=== PATIENT | female | born 1990 | race African-American/Black ===

== ENCOUNTER 2022-03-22 20:32 | Emergency (ER) | payer MEDICAID ==
[~2022-03-22] VITALS: Ht 170.2 cm; Wt 68.0 kg
[2022-03-22 20:45] VITALS: BP 102/67
--- NOTE | 2022-03-22 20:48 | NUR ---
TO LOBBY A/W BED AMBULATORY
[2022-03-22] MEDS ORDERED: ONDANSETRON 4 MG ODT PO ONE (22:00)
[2022-03-22 22:20] LABS: APPEARANCE,URINE CLEAR (CLEAR); BILIRUBIN,URINE 1+ (NEGATIVE); BLOOD, URINE NEGATIVE (NEGATIVE); COLOR,URINE YELLOW (YELLOW); LEUKOCYTE ESTERASE ,URINE NEGATIVE (NEGATIVE); NITRITE, URINE NEGATIVE (NEGATIVE); UGLUCOSE NEGATIVE (NEGATIVE)
--- NOTE | 2022-03-22 22:24 | NUR ---
PHLEB DRAWING LABS
--- NOTE | 2022-03-22 22:30 | NUR ---
SEEN AND EXAMINED BY GUIDO
[2022-03-22 22:32] LABS: BASOPHILS % (AUTO) 0.3 % (0.0-2.0); EOSINOPHILS # (AUTO) 0.1 K/uL (0-0.4); HEMATOCRIT 34.4 % (36-48); HEMOGLOBIN 11.6 g/dL (12.0-16.0); LYMPHOCYTES # (AUTO) 2.5 K/uL (2.5-16.5); LYMPHOCYTES % (AUTO) 42.3 % (20.5-51.1); MEAN CORPUSCULAR HEMOGLOBIN 31 pg (27-31); MEAN CORPUSCULAR HGB CONC 34 g/dL (33-37); MEAN CORPUSCULAR VOLUME 93.1 fL (80-94); MONOCYTES # (AUTO) 0.5 K/uL (0.8-1.0); MONOCYTES % (AUTO) 8.6 % (1.7-9.3); NEUTROPHILS # (AUTO) 2.9 K/uL (1.8-7.7); NEUTROPHILS % (AUTO) 47.8 % (42.2-75.2); PLATELET COUNT (AUTO) 276 K/uL (140-450); RED BLOOD CELL COUNT(AUTO) 3.69 MIL/uL (4.20-5.40); RED CELL DISTRIBUTION WIDTH 12.9 % (11.6-13.7)
[2022-03-22 22:53] LABS: ALBUMIN 4.1 g/dL (3.4-5.0); CARBON DIOXIDE 30.1 mmol/L (21-32); POTASSIUM 4.1 mmol/L (3.5-5.1); TOTAL BILIRUBIN 0.4 mg/dL (0.0-1.0)
[2022-03-23] MEDS ORDERED: POLY17PD72 PO (00:07)
[2022-03-23] MEDS ORDERED: ONDA-188 SL (00:07)
[2022-03-23 00:10] VITALS: BP 115/78
--- NOTE | 2022-03-23 00:10 | NUR ---
Patient discharged with v/s stable. Written and verbal after care instructions given and explained. Patient alert, oriented and verbalized understanding of instructions. Ambulatory with steady gait. All questions addressed prior to discharge. ID band removed. Patient advised to follow up with PMD. Rx of ZOFRAN, GLYCOL given. Patient educated on indication of medication including possible reaction and side effects. Opportunity to ask questions provided and answered.
== END 2022-03-23 00:10 | disposition home or self-care (01) ==
LOC: MED 20:32
DX: K59.00 Constipation, unspecified (principal)
CPT/HCPCS: 36415; 74018; 80053; 81003; 81025; 83690; 85025; 99284; Q0162

== ENCOUNTER 2022-03-30 23:00 | Emergency (ER) | payer MEDICAID ==
[~2022-03-30] VITALS: Ht 170.2 cm; Wt 68.0 kg
[~2022-03-30 23:00] MED LIST: ONDA-188 SL; POLY17PD72 PO
--- NOTE | 2022-03-30 23:00 | NUR ---
PT CAME IN FOR ABCESS IN THE [facility]. SHE SAID THAT WHEN SHE WORKED YESTERDAY UND[employer] KIND AGGRAVATE HER ABCESS. PT IS ALERT AD ORIENTED X 4. AMBULATORY AND ROOM AIR
[2022-03-30 23:15] VITALS: BP 110/80
--- NOTE | 2022-03-30 23:15 | NUR ---
to bed ambulatory
--- NOTE | 2022-03-30 23:30 | NUR ---
seen and examined by GUIDO
[2022-03-30] MEDS ORDERED: LIDOCAINE 1% 500 MG/ 50 ML VIAL INJ ONE (23:35)
[2022-03-30] MEDS ORDERED: LIDOCAINE MPF 1% 10 ML ONE (23:37)
[2022-03-30 23:40] VITALS: BP 110/80
--- NOTE | 2022-03-30 23:47 | NUR ---
Dr. Borjas at bedside for procedure
[2022-03-30] MEDS ORDERED: LIDOCAINE MPF 1% 5 ML ONE (23:57)
[2022-03-31] MEDS ORDERED: LIDOCAINE MPF 1% 10 MG/ML VIAL INJ ONE
[2022-03-31] MEDS ORDERED: NAPR-54 PO (00:19)
[2022-03-31] MEDS ORDERED: CEPH-588 PO (00:19)
--- NOTE | 2022-03-31 00:28 | NUR ---
Patient discharged with v/s stable. Written and verbal after care instructions given and explained. Patient alert, oriented and verbalized understanding of instructions. Ambulatory with steady gait. All questions addressed prior to discharge. ID band removed. Patient advised to follow up with PMD. Rx of NAPROXEN AND KEFLEX given. Patient educated on indication of medication including possible reaction and side effects. Opportunity to ask questions provided and answered.
== END 2022-03-31 00:28 | disposition home or self-care (01) ==
LOC: MED 23:00
DX: K61.1 Rectal abscess (principal)
CPT/HCPCS: 10060; 99283; J2001

== ENCOUNTER 2022-04-01 22:46 | Emergency (ER) | payer MEDICAID ==
[~2022-04-01] VITALS: Ht 170.2 cm; Wt 68.0 kg
[~2022-04-01 22:46] MED LIST changes: +CEPH-588 PO; +NAPR-54 PO
[2022-04-01 23:02] VITALS: BP 98/68
--- NOTE | 2022-04-01 23:20 | NUR ---
PT TO 1
--- NOTE | 2022-04-01 23:30 | NUR ---
Pt BIB family to ED, she's 31-year-old female, previously healthy, presents to the ED for evaluation of a potential perirectal abscess. No other concerns verbalized.
--- NOTE | 2022-04-02 00:10 | NUR ---
Female [employer] Brusher accompanied female patient for REMOVAL OF PACKING TO RIGHT BUTTOCK.
[2022-04-02 00:20] VITALS: BP 124/68
--- NOTE | 2022-04-02 00:20 | NUR ---
Patient discharged with v/s stable. Written and verbal after care instructions given and explained. Patient verbalized understanding. Ambulatory with steady gait. All questions addressed prior to discharge. Advised to follow up with PMD.
== END 2022-04-02 00:20 | disposition home or self-care (01) ==
LOC: MED 22:46
DX: L02.31 Cutaneous abscess of buttock (principal); F12.90 Cannabis use, unspecified, uncomplicated; Z79.899 Other long term (current) drug therapy
CPT/HCPCS: 99281

== ENCOUNTER 2022-05-29 19:15 | Emergency (ER) | payer MEDICAID, OTHER ==
[~2022-05-29] VITALS: Ht 170.2 cm; Wt 72.1 kg
[2022-05-29 19:27] VITALS: BP 117/80
--- NOTE | 2022-05-29 19:32 | NUR ---
PT TO BED AMBULATORY
[2022-05-29] MEDS ORDERED: NACL 0.9% 1,000 ML IV ONE ×2 (19:40→20:35)
[2022-05-29] MEDS ORDERED: diphenhydrAMINE 50 MG/ML VIAL IVP ONE (19:40)
[2022-05-29] MEDS ORDERED: HALOPERIDOL IM 5 MG/ML VIAL IVP ONE (19:40)
--- NOTE | 2022-05-29 19:42 | NUR ---
DR BLANKENSHIP AT BEDSIDE
[2022-05-29 19:57] VITALS: BP 136/87
[2022-05-29 19:58] LABS: BASOPHILS % (AUTO) 0.3 % (0.0-2.0); EOSINOPHILS % (AUTO) 0.2 % (0.0-4.0); HEMATOCRIT 34.5 % (36-48); HEMOGLOBIN 11.6 g/dL (12.0-16.0); LYMPHOCYTES # (AUTO) 2.9 K/uL (2.5-16.5); LYMPHOCYTES % (AUTO) 34.2 % (20.5-51.1); MEAN CORPUSCULAR HEMOGLOBIN 31 pg (27-31); MEAN CORPUSCULAR HGB CONC 34 g/dL (33-37); MEAN CORPUSCULAR VOLUME 90.4 fL (80-94); MONOCYTES # (AUTO) 1.3 K/uL (0.8-1.0); MONOCYTES % (AUTO) 15.3 % (1.7-9.3); NEUTROPHILS # (AUTO) 4.3 K/uL (1.8-7.7); PLATELET COUNT (AUTO) 300 K/uL (140-450); RED BLOOD CELL COUNT(AUTO) 3.81 MIL/uL (4.20-5.40); RED CELL DISTRIBUTION WIDTH 13.8 % (11.6-13.7); WHITE BLOOD COUNT (AUTO) 8.6 K/uL (4.8-10.8)
--- NOTE | 2022-05-29 20:02 | NUR ---
XRAY AT BEDSIDE
--- NOTE | 2022-05-29 20:02 | NUR ---
31YR OLD FEMALE BIB SELF C/O ABD PAIN VOMITING X3DAYS. PT IS A&OX4 STATES SX STARTED WED. VOMITING -DIARRHEA OR FEVER DENIES SOB OR CP . PAIN IS 10/10 SHARP MID GASTRIC ABD. PT IS ON BEDSIDE MONITOR. NKDA NO MED HX
[2022-05-29 20:17] LABS: ANION GAP 18.1 (8-16); CARBON DIOXIDE 24.1 mmol/L (21-32); CREATININE 1.7 mg/dL (0.6-1.3); POTASSIUM 3.2 mmol/L (3.5-5.1); TOTAL BILIRUBIN 0.6 mg/dL (0.0-1.0)
--- NOTE | 2022-05-29 20:29 | NUR ---
PT IS RESTING IN BED HOB ELEVATED. 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
--- NOTE | 2022-05-29 21:05 | NUR ---
URINE COLLECTED AND SENT TO LAB
[2022-05-29 21:18] LABS: BILIRUBIN,URINE NEGATIVE (NEGATIVE); BLOOD, URINE NEGATIVE (NEGATIVE); LEUKOCYTE ESTERASE ,URINE TRACE (NEGATIVE); NITRITE, URINE NEGATIVE (NEGATIVE); PH,URINE 5.5 (5.0-9.0); UGLUCOSE NEGATIVE (NEGATIVE)
[2022-05-29 21:20] LABS: APPEARANCE,URINE HAZY (CLEAR); COLOR,URINE AMBER (YELLOW)
[2022-05-29] MEDS ORDERED: ONDANSETRON 4 MG/2 ML VIAL ONE (21:29)
[2022-05-29] MEDS ORDERED: ONDANSETRON 4 MG/2 ML VIAL IVP ONE (21:30)
[2022-05-29] MEDS ORDERED: CAPSAICIN 0.025% CRE 60 GM TUBE TP ONE (21:30)
[2022-05-29 21:38] LABS: RBC,URINE NONE SEEN /HPF (0-5)
[2022-05-29] MEDS ORDERED: CEPH-588 PO (22:28)
[2022-05-29] MEDS ORDERED: ONDA-188 PO (22:28)
--- NOTE | 2022-05-29 22:40 | NUR ---
Patient discharged with v/s stable. Written and verbal after care instructions given and explained. Patient verbalized understanding. Ambulatory with by caregiver. All questions addressed prior to discharge. Advised to follow up with PMD.
== END 2022-05-29 22:40 | disposition home or self-care (01) ==
LOC: MED 19:15
DX: N39.0 Urinary tract infection, site not specified (principal); K59.00 Constipation, unspecified; N17.9 Acute kidney failure, unspecified; Z79.899 Other long term (current) drug therapy
CPT/HCPCS: 36415; 74018; 80053; 81001; 81025; 83690; 85025; 87086; 96361; 96374; 96375; 99284; J1200; J1630; J2405; J7030

== ENCOUNTER 2022-06-03 01:07 | Emergency (ER) | payer OTHER ==
[~2022-06-03] VITALS: Ht 170.2 cm; Wt 66.3 kg
[~2022-06-03 01:07] MED LIST changes: +ONDA-188 PO
[2022-06-03 01:30] VITALS: BP 112/58
--- NOTE | 2022-06-03 01:30 | NUR ---
TO BED AMBULATORY
--- NOTE | 2022-06-03 01:58 | NUR ---
Blood for labwork drawn from [facility]. Patient tolerated well. Blood sent to lab.
[2022-06-03 02:01] VITALS: BP 112/58
--- NOTE | 2022-06-03 02:04 | NUR ---
VOMITING FOR A WEEK, ABD PAIN. PT IS ALERT AND ORIENTED X4.
[2022-06-03] MEDS ORDERED: HALOPERIDOL IM 5 MG/ML VIAL IVP ONE (02:20)
[2022-06-03] MEDS ORDERED: NACL 0.9% 1,000 ML IV ONE (02:20)
[2022-06-03 02:31] LABS: BASOPHILS # (AUTO) 0.1 K/uL (0.00-0.22); BASOPHILS % (AUTO) 0.6 % (0.0-2.0); HEMATOCRIT 37.6 % (36-48); HEMOGLOBIN 12.6 g/dL (12.0-16.0); LYMPHOCYTES # (AUTO) 2.5 K/uL (2.5-16.5); LYMPHOCYTES % (AUTO) 24.4 % (20.5-51.1); MEAN CORPUSCULAR HEMOGLOBIN 31 pg (27-31); MEAN CORPUSCULAR HGB CONC 34 g/dL (33-37); MONOCYTES # (AUTO) 1.1 K/uL (0.8-1.0); MONOCYTES % (AUTO) 10.4 % (1.7-9.3); NEUTROPHILS # (AUTO) 6.7 K/uL (1.8-7.7); NEUTROPHILS % (AUTO) 64.6 % (42.2-75.2); PLATELET COUNT (AUTO) 324 K/uL (140-450); RED BLOOD CELL COUNT(AUTO) 4.13 MIL/uL (4.20-5.40); RED CELL DISTRIBUTION WIDTH 13.7 % (11.6-13.7); WHITE BLOOD COUNT (AUTO) 10.4 K/uL (4.8-10.8)
[2022-06-03 02:38] LABS: ANION GAP 20.6 (8-16); CREATININE 3.7 mg/dL (0.6-1.3); POTASSIUM 3.6 mmol/L (3.5-5.1); TOTAL BILIRUBIN 0.6 mg/dL (0.0-1.0)
[2022-06-03] MEDS ORDERED: METOCLOPRAMIDE 10 MG/2 ML INJ VIAL IVP ONE (04:20)
[2022-06-03] MEDS ORDERED: METOCLOPRAMIDE 10 MG/2 ML INJ VIAL ONE (04:24)
--- NOTE | 2022-06-03 05:50 | NUR ---
adm Patient will be admitted to care of acute pancratitis. Admited to telemetry. Will go to room. Belongings list completed. Report to .
[2022-06-03] MEDS ORDERED: ONDANSETRON 4 MG/2 ML VIAL IVP PRN (06:00)
[2022-06-03] MEDS ORDERED: MORPHINE SULFATE 4 MG/ML SYR IVP PRN (06:00)
[2022-06-03] MEDS ORDERED: NACL 0.9% 1,000 ML IV SCH (06:00)
[2022-06-03] MEDS ORDERED: HYDROcodone/APAP 5/325 MG 1 TAB TAB PO PRN (06:00)
[2022-06-03] MEDS ORDERED: MAGNESIUM OXIDE 400 MG TAB PO PRN (06:00)
[2022-06-03] MEDS ORDERED: POTASSIUM CHLORIDE 10 MEQ TABER PO PRN (06:00)
[2022-06-03] MEDS ORDERED: ACETAMINOPHEN 325 MG TAB PO PRN (06:00)
[2022-06-03] MEDS ORDERED: METOCLOPRAMIDE 10 MG/2 ML INJ VIAL IVP PRN (06:05)
--- NOTE | 2022-06-03 06:35 | NUR ---
called exchange s/w Bobbi to paged transmission supervisor physcian to notify that patient left AMA.
--- NOTE | 2022-06-03 06:35 | NUR ---
Patient does not wish to proceed with medical care recommended by MD Cuevas. Patient given information related to possible complications, up to and including , which could occur as a result of leaving hospital at this time. Patient verbalizes understanding of risks involved leaving against medical advice. Patient has signed AMA form.
[2022-06-03] MEDS ORDERED: DOCUSATE SODIUM 100 MG GELCAP PO SCH (09:00)
== END 2022-06-03 06:02 | disposition admitted as inpatient to this hospital (09) ==
LOC: MED 01:07 → MMU 06:02 → UNDOADMOB 06:02 → UNDODISOB 06:35
DX: N17.9 Acute kidney failure, unspecified (principal); R11.10 Vomiting, unspecified; Z20.822 Contact with and (suspected) exposure to COVID-19; F12.90 Cannabis use, unspecified, uncomplicated; Z79.899 Other long term (current) drug therapy; Z79.2 Long term (current) use of antibiotics; Z79.1 Long term (current) use of non-steroidal anti-inflammatories (NSAID)
CPT/HCPCS: 36415; 80053; 83690; 84703; 85025; 87426; 96361; 96374; 96375; 99284; J1630; J2765; G0378

== ENCOUNTER 2023-02-04 01:45 | Inpatient (IN) | payer OTHER ==
[~2023-02-04] VITALS: Ht 182.9 cm; Wt 77.6 kg
[2023-02-04 01:54] VITALS: BP 104/79; PULSE 92; RESP 16; TEMP 97; O2SAT 100
[2023-02-04] MEDS ORDERED: diphenhydrAMINE 50 MG/ML VIAL IVP ONE (02:25)
[2023-02-04] MEDS ORDERED: HALOPERIDOL IM 5 MG/ML VIAL IVP ONE (02:25)
[2023-02-04] MEDS ORDERED: NACL 0.9% 1,000 ML IV ONE (02:25)
[2023-02-04 02:36] LABS: BASOPHILS # (AUTO) 0.1 K/uL (0.00-0.22); BASOPHILS % (AUTO) 0.2 % (0.0-2.0); HEMATOCRIT 38.6 % (36-48); HEMOGLOBIN 13.1 g/dL (12.0-16.0); LYMPHOCYTES # (AUTO) 1.8 K/uL (2.5-16.5); LYMPHOCYTES % (AUTO) 6.9 % (20.5-51.1); MEAN CORPUSCULAR HEMOGLOBIN 31 pg (27-31); MEAN CORPUSCULAR HGB CONC 34 g/dL (33-37); MEAN CORPUSCULAR VOLUME 90.1 fL (80-94); MONOCYTES # (AUTO) 2.6 K/uL (0.8-1.0); NEUTROPHILS # (AUTO) 21.9 K/uL (1.8-7.7); NEUTROPHILS % (AUTO) 82.9 % (42.2-75.2); PLATELET COUNT (AUTO) 286 K/uL (140-450); RED BLOOD CELL COUNT(AUTO) 4.29 MIL/uL (4.20-5.40); RED CELL DISTRIBUTION WIDTH 14.3 % (11.6-13.7)
[2023-02-04 02:37] LABS: WHITE BLOOD COUNT (AUTO) 26.4 K/uL (4.8-10.8)
[2023-02-04 02:49] LABS: ANION GAP 27.6 (8-16); CALCIUM 11.4 mg/dL (8.5-10.1); CARBON DIOXIDE 19.9 mmol/L (21-32); POTASSIUM 4.5 mmol/L (3.5-5.1)
[2023-02-04 02:50] LABS: CREATININE 6.9 mg/dL (0.6-1.3)
[2023-02-04] MEDS ORDERED: diphenhydrAMINE 50 MG/ML VIAL ONE (03:38)
[2023-02-04] MEDS ORDERED: HALOPERIDOL IM 5 MG/ML VIAL ONE (03:57)
[2023-02-04] MEDS ORDERED: ONDANSETRON 4 MG/2 ML VIAL IVP ONE (04:25)
[2023-02-04] MEDS ORDERED: LORazepam 2 MG/ML VIAL IVP ONE (04:25)
[2023-02-04 04:33] LABS: LACTIC ACID 2.3 mmol/L (0.4-2.0)
[2023-02-04] MEDS ORDERED: MAGNESIUM OXIDE 400 MG TAB PO PRN (05:50)
[2023-02-04] MEDS ORDERED: HYDROcodone/APAP 5/325 MG 1 TAB TAB PO PRN (05:50)
[2023-02-04] MEDS ORDERED: MORPHINE SULFATE 4 MG/ML SYR IVP PRN (05:50)
[2023-02-04] MEDS ORDERED: POTASSIUM CHLORIDE 10 MEQ TABER PO PRN (05:50)
[2023-02-04] MEDS ORDERED: ACETAMINOPHEN 325 MG TAB PO PRN (05:50)
[2023-02-04] MEDS ORDERED: cefTRIAXone 1,000 MG VIAL ONE (07:09)
[2023-02-04] MEDS: NACL 0.9% 1,000 ML IV SCH ×2 (07:20→21:02)
[2023-02-04] MEDS: DOCUSATE SODIUM 100 MG GELCAP PO SCH (09:56)
[2023-02-04 10:38] LABS: AMPHETAMINE, URINE NEGATIVE ng/ml (NEG <=1000); BARBITURATE, URINE NEGATIVE ng/ml (NEG <=200); BENZODIAZEPINE, URINE NEGATIVE ng/mL (NEG <=200); CANNABINOID, URINE POSITIVE ng/mL (NEG <=50); COCAINE, URINE NEGATIVE ng/mL (NEG <=300)
[2023-02-04 10:39] LABS: PHENCYCLIDINE SCREEN,URINE NEGATIVE ng/mL (NEG <=25)
[2023-02-04 10:40] LABS: OPIATE, URINE POSITIVE ng/mL (NEG <=2000)
[2023-02-04] MEDS: ONDANSETRON 4 MG/2 ML VIAL IVP PRN ×3 (11:07→21:19)
[2023-02-04 15:45] LABS: ANION GAP 19.7 (8-16); CALCIUM 9.5 mg/dL (8.5-10.1); CARBON DIOXIDE 23.7 mmol/L (21-32); POTASSIUM 4.4 mmol/L (3.5-5.1)
[2023-02-04 15:50] LABS: CREATININE 6.9 mg/dL (0.6-1.3)
[2023-02-04 20:17] VITALS: BP 112/84; PULSE 68; PULSE 86; RESP 15; RESP 17; TEMP 98.3; O2SAT 100
[2023-02-04 22:22] LABS: ANION GAP 19.5 (8-16); CALCIUM 9.4 mg/dL (8.5-10.1); CARBON DIOXIDE 23.2 mmol/L (21-32); POTASSIUM 4.7 mmol/L (3.5-5.1)
[2023-02-04 22:32] LABS: CREATININE 6.1 mg/dL (0.6-1.3)
[2023-02-05] VITALS (7 sets, daily range): BP systolic 101–125; BP diastolic 59–70; PULSE 65–109; RESP 17–18; TEMP 95.5–98.7; O2SAT 99–100
[2023-02-05] MEDS: ONDANSETRON 4 MG/2 ML VIAL IVP PRN ×3 (02:13→20:31)
[2023-02-05] MEDS ORDERED: cefTRIAXone 1,000 MG VIAL ONE (05:36)
[2023-02-05] MEDS: NACL 0.9% 1,000 ML IV SCH ×2 (05:46→13:00)
[2023-02-05 07:09] LABS: CALCIUM 8.9 mg/dL (8.5-10.1); CARBON DIOXIDE 22.6 mmol/L (21-32); POTASSIUM 3.6 mmol/L (3.5-5.1)
[2023-02-05 07:10] LABS: BASOPHILS % (AUTO) 0.1 % (0.0-2.0); EOSINOPHILS % (AUTO) 0.1 % (0.0-4.0); HEMATOCRIT 30.5 % (36-48); HEMOGLOBIN 10.2 g/dL (12.0-16.0); LYMPHOCYTES # (AUTO) 1.9 K/uL (2.5-16.5); LYMPHOCYTES % (AUTO) 17.8 % (20.5-51.1); MEAN CORPUSCULAR HEMOGLOBIN 30 pg (27-31); MEAN CORPUSCULAR HGB CONC 33 g/dL (33-37); MEAN CORPUSCULAR VOLUME 91.3 fL (80-94); MONOCYTES # (AUTO) 1.3 K/uL (0.8-1.0); MONOCYTES % (AUTO) 12.3 % (1.7-9.3); NEUTROPHILS # (AUTO) 7.4 K/uL (1.8-7.7); NEUTROPHILS % (AUTO) 69.7 % (42.2-75.2); PLATELET COUNT (AUTO) 223 K/uL (140-450); RED BLOOD CELL COUNT(AUTO) 3.34 MIL/uL (4.20-5.40); RED CELL DISTRIBUTION WIDTH 14.4 % (11.6-13.7); WHITE BLOOD COUNT (AUTO) 10.6 K/uL (4.8-10.8)
[2023-02-05 07:18] LABS: CREATININE 4.7 mg/dL (0.6-1.3)
[2023-02-05 07:59] LABS: BILIRUBIN,URINE NEGATIVE (NEGATIVE); BLOOD, URINE NEGATIVE (NEGATIVE); COLOR,URINE YELLOW (YELLOW); LEUKOCYTE ESTERASE ,URINE 1+ (NEGATIVE); NITRITE, URINE NEGATIVE (NEGATIVE); PH,URINE 5.5 (5.0-9.0); PROTEIN,URINE 1+ (NEGATIVE); UGLUCOSE NEGATIVE (NEGATIVE); UROBILINOGEN,URINE 0.2 EU/dL (0.2 - 1)
[2023-02-05 08:00] LABS: APPEARANCE,URINE CLOUDY (CLEAR)
[2023-02-05 08:10] LABS: BACTERIA,URINE 10-30 (MOD) /HPF (None Seen); SQUAMOUS EPITHELIAL CELL,UR 4-10 (MOD) /LPF (0-3 (FEW))
[2023-02-05] MEDS: DOCUSATE SODIUM 100 MG GELCAP PO SCH (08:59)
[2023-02-06] VITALS: BP 105/70; PULSE 67; RESP 18; TEMP 98; O2SAT 100
[2023-02-06] MEDS: ONDANSETRON 4 MG/2 ML VIAL IVP PRN (02:29)
[2023-02-06] MEDS: NACL 0.9% 1,000 ML IV SCH (02:30)
[2023-02-06 04:00] VITALS: BP 113/68; PULSE 67; RESP 18; TEMP 97.8; O2SAT 100
[2023-02-06 07:14] LABS: BASOPHILS % (AUTO) 0.4 % (0.0-2.0); EOSINOPHILS % (AUTO) 0.4 % (0.0-4.0); HEMATOCRIT 27.5 % (36-48); HEMOGLOBIN 9.2 g/dL (12.0-16.0); LYMPHOCYTES # (AUTO) 1.9 K/uL (2.5-16.5); LYMPHOCYTES % (AUTO) 34.2 % (20.5-51.1); MEAN CORPUSCULAR HEMOGLOBIN 31 pg (27-31); MEAN CORPUSCULAR HGB CONC 34 g/dL (33-37); MEAN CORPUSCULAR VOLUME 91.1 fL (80-94); MONOCYTES # (AUTO) 0.8 K/uL (0.8-1.0); MONOCYTES % (AUTO) 14.4 % (1.7-9.3); NEUTROPHILS # (AUTO) 2.8 K/uL (1.8-7.7); NEUTROPHILS % (AUTO) 50.6 % (42.2-75.2); PLATELET COUNT (AUTO) 214 K/uL (140-450); RED BLOOD CELL COUNT(AUTO) 3.02 MIL/uL (4.20-5.40); WHITE BLOOD COUNT (AUTO) 5.5 K/uL (4.8-10.8)
[2023-02-06 07:26] LABS: ANION GAP 12.8 (8-16); CALCIUM 8.6 mg/dL (8.5-10.1); CARBON DIOXIDE 26.6 mmol/L (21-32); CREATININE 2.2 mg/dL (0.6-1.3); POTASSIUM 3.4 mmol/L (3.5-5.1)
[2023-02-06] MEDS: DOCUSATE SODIUM 100 MG GELCAP PO SCH (08:06)
[2023-02-06 08:56] VITALS: BP 104/62; PULSE 55; PULSE 62; RESP 18; TEMP 97; O2SAT 100
[2023-02-06 10:13] VITALS: BP 104/62; PULSE 62; RESP 18; TEMP 97
[2023-02-06] MEDS ORDERED: ONDA-188 SL (10:42)
== END 2023-02-06 11:10 | disposition home or self-care (01) | DRG 241 ==
LOC: MED 01:45 → MTU 05:53
PROVIDERS: ADMIT Student in an Organized Health Care Education/Training Program; ATTEND Student in an Organized Health Care Education/Training Program
DX: K29.70 Gastritis, unspecified, without bleeding (principal); N17.0 Acute kidney failure with tubular necrosis; E86.1 Hypovolemia; R65.10 Systemic inflammatory response syndrome (SIRS) of non-infectious origin without acute organ dysfunction; E86.9 Volume depletion, unspecified; F32.A Depression, unspecified; M79.7 Fibromyalgia; F12.90 Cannabis use, unspecified, uncomplicated; R11.15 Cyclical vomiting syndrome unrelated to migraine
CPT/HCPCS: 36415; 71045; 76770; 80048; 80305; 81001; 81025; 82570; 83605; 84300; 85025; 87040; 87081; 87086; 96361; 96372; 96374; 96375; 99285; J0696; J1200; J1630; J1644; J2060; J2405; J7060; Q0092

== ENCOUNTER 2023-06-08 09:35 | Emergency (ER) | payer MEDICAID, OTHER ==
[~2023-06-08] VITALS: Ht 170.2 cm; Wt 79.4 kg
[~2023-06-08 09:35] MED LIST changes: -CEPH-588 PO; -NAPR-54 PO; -ONDA-188 PO; -POLY17PD72 PO
[2023-06-08 09:40] VITALS: BP 110/70; PULSE 61; RESP 18; TEMP 97.1; O2SAT 100
[2023-06-08 10:47] VITALS: BP 112/82; PULSE 78; RESP 16; TEMP 98; O2SAT 100
== END 2023-06-08 10:47 | disposition home or self-care (01) ==
LOC: MED 09:35
DX: S83.91XA Sprain of unspecified site of right knee, initial encounter (principal); X58.XXXA Exposure to other specified factors, initial encounter; Y93.89 Activity, other specified; Y92.89 Other specified places as the place of occurrence of the external cause; Y99.8 Other external cause status
CPT/HCPCS: 73562; 81025; 99283

== ENCOUNTER 2023-07-16 21:54 | Emergency (ER) | payer MEDICAID ==
[~2023-07-16] VITALS: Ht 170.2 cm; Wt 81.6 kg
[2023-07-16 21:55] VITALS: BP 114/74; PULSE 92; RESP 17; TEMP 97.8; O2SAT 100
[2023-07-16] MEDS: IBUPROFEN 600 MG TAB PO ONE (23:26)
[2023-07-16 23:52] VITALS: O2SAT 98
[2023-07-16] MEDS: LIDOCAINE MPF 1% 10 MG/ML VIAL INJ ONE (23:59)
[2023-07-17] MEDS ORDERED: CLIN300C52 PO (00:12)
[2023-07-17] MEDS ORDERED: IBUP-1842 PO (00:12)
== END 2023-07-17 00:20 | disposition home or self-care (01) ==
LOC: MED 21:54
DX: L02.412 Cutaneous abscess of left axilla (principal); Z79.899 Other long term (current) drug therapy
CPT/HCPCS: 10060; 99283; J2001

== ENCOUNTER 2023-07-24 20:45 | Emergency (ER) | payer MEDICAID ==
[~2023-07-24] VITALS: Ht 170.2 cm; Wt 79.4 kg
[~2023-07-24 20:45] MED LIST changes: +CLIN300C52 PO; +IBUP-1842 PO
[2023-07-24 21:16] VITALS: BP 120/58; PULSE 127; RESP 20; TEMP 96.7; O2SAT 96
[2023-07-24 21:29] VITALS: BP 120/58; PULSE 127; RESP 20; TEMP 96.7
[2023-07-24 21:34] VITALS: O2SAT 96
[2023-07-24] MEDS: HALOPERIDOL IM 5 MG/ML VIAL IVP ONE (23:19)
[2023-07-24] MEDS: diphenhydrAMINE 50 MG/ML VIAL IVP ONE (23:20)
[2023-07-24] MEDS: NACL 0.9% 1,000 ML IV ONE (23:20)
== END 2023-07-25 01:15 | disposition home or self-care (01) ==
LOC: MED 20:45
DX: R11.2 Nausea with vomiting, unspecified (principal); F12.90 Cannabis use, unspecified, uncomplicated; Z79.899 Other long term (current) drug therapy
CPT/HCPCS: 81002; 81025; 96361; 96374; 96375; 99284; J1200; J1630; J7030

== ENCOUNTER 2023-07-27 02:20 | Emergency (ER) | payer MEDICAID ==
[~2023-07-27] VITALS: Ht 170.2 cm; Wt 75.3 kg
[2023-07-27 02:34] VITALS: BP 119/79; PULSE 145; RESP 26; TEMP 97.4; O2SAT 100
[2023-07-27] MEDS: NACL 0.9% 1,000 ML IV ONE ×2 (02:55→03:49)
[2023-07-27 03:02] LABS: APPEARANCE,URINE CLOUDY (CLEAR); BILIRUBIN,URINE NEGATIVE (NEGATIVE); BLOOD, URINE 3+ (NEGATIVE); COLOR,URINE YELLOW (YELLOW); LEUKOCYTE ESTERASE ,URINE NEGATIVE (NEGATIVE); NITRITE, URINE NEGATIVE (NEGATIVE); PROTEIN,URINE 3+ (NEGATIVE); UGLUCOSE NEGATIVE (NEGATIVE); UROBILINOGEN,URINE 0.2 EU/dL (0.2 - 1)
[2023-07-27 03:07] LABS: BASOPHILS % (AUTO) 0.5 % (0.0-2.0); EOSINOPHILS % (AUTO) 0.1 % (0.0-4.0); HEMATOCRIT 38.5 % (36-48); HEMOGLOBIN 13.1 g/dL (12.0-16.0); LYMPHOCYTES # (AUTO) 2.5 K/uL (2.5-16.5); MEAN CORPUSCULAR HEMOGLOBIN 31 pg (27-31); MEAN CORPUSCULAR HGB CONC 34 g/dL (33-37); MEAN CORPUSCULAR VOLUME 90.3 fL (80-94); MONOCYTES # (AUTO) 0.9 K/uL (0.8-1.0); MONOCYTES % (AUTO) 10.9 % (1.7-9.3); NEUTROPHILS % (AUTO) 58.5 % (42.2-75.2); PLATELET COUNT (AUTO) 403 K/uL (140-450); RED BLOOD CELL COUNT(AUTO) 4.27 MIL/uL (4.20-5.40); RED CELL DISTRIBUTION WIDTH 15.3 % (11.6-13.7); WHITE BLOOD COUNT (AUTO) 8.5 K/uL (4.8-10.8)
[2023-07-27 03:22] LABS: ANION GAP 22.8 (8-16); CALCIUM 10.8 mg/dL (8.5-10.1); CARBON DIOXIDE 23.7 mmol/L (21-32); CREATININE 2.7 mg/dL (0.6-1.3); POTASSIUM 3.5 mmol/L (3.5-5.1)
[2023-07-27 03:23] LABS: BACTERIA,URINE >30 (MANY) /HPF (None Seen); MUCUS,URINE 1+ /LPF (None Seen); RBC,URINE TOO NUMEROUS TO COUN /HPF (0-5); SQUAMOUS EPITHELIAL CELL,UR 0-3 (FEW) /LPF (0-3 (FEW)); WBC,URINE 0-5 /HPF (0-5)
[2023-07-27 03:25] LABS: ALBUMIN 5.1 g/dL (3.4-5.0); BILIRUBIN,DIRECT 0.1 mg/dL (0.0-0.3); MAGNESIUM 2.4 mg/dL (1.8-2.4); PHOSPHORUS 5.6 mg/dL (2.5-4.9); TOTAL BILIRUBIN 0.4 mg/dL (0.0-1.0); TOTAL PROTEIN, SERUM 10.6 g/dL (6.4-8.2)
[2023-07-27] MEDS: diphenhydrAMINE 50 MG/ML VIAL IVP ONE (03:59)
[2023-07-27] MEDS: HALOPERIDOL IM 5 MG/ML VIAL IVP ONE (03:59)
[2023-07-27] MEDS ORDERED: ONDA-188 SL (05:24)
[2023-07-27 05:31] VITALS: BP 116/79; PULSE 84; RESP 22; TEMP 97.8; O2SAT 99
== END 2023-07-27 05:31 | disposition home or self-care (01) ==
LOC: MED 02:20
DX: R11.10 Vomiting, unspecified (principal); R10.9 Unspecified abdominal pain; Z71.6 Tobacco abuse counseling; Z79.1 Long term (current) use of non-steroidal anti-inflammatories (NSAID); Z79.899 Other long term (current) drug therapy
CPT/HCPCS: 36415; 80048; 80076; 81001; 81025; 83690; 83735; 84100; 84703; 85025; 87086; 96361; 96374; 96375; 99284; J1200; J1630; J7030

== ENCOUNTER 2023-08-19 01:49 | Emergency (ER) | payer MEDICAID, OTHER ==
[~2023-08-19] VITALS: Ht 170.2 cm; Wt 77.1 kg
[2023-08-19 02:20] VITALS: BP 124/93; PULSE 93; RESP 20; TEMP 97.4; O2SAT 98
[2023-08-19 02:45] VITALS: TEMP 97.4
[2023-08-19] MEDS: HALOPERIDOL IM 5 MG/ML VIAL IM ONE (02:46)
[2023-08-19] MEDS ORDERED: METO-485 PO (04:43)
[2023-08-19 04:53] VITALS: BP 120/86; PULSE 100; RESP 18; O2SAT 97
[2023-08-20] MEDS ORDERED: OMEP20EC11 PO (13:53)
== END 2023-08-19 04:53 | disposition home or self-care (01) ==
LOC: MED 01:49
DX: K57.30 Diverticulosis of large intestine without perforation or abscess without bleeding (principal); R11.2 Nausea with vomiting, unspecified; R10.9 Unspecified abdominal pain; F12.90 Cannabis use, unspecified, uncomplicated; Z71.6 Tobacco abuse counseling; Z79.1 Long term (current) use of non-steroidal anti-inflammatories (NSAID); Z79.2 Long term (current) use of antibiotics; Z79.899 Other long term (current) drug therapy; Z87.891 Personal history of nicotine dependence
CPT/HCPCS: 81025; 96372; 99283; J1630

== ENCOUNTER 2023-08-20 08:36 | Emergency (ER) | payer OTHER ==
[~2023-08-20] VITALS: Ht 170.2 cm; Wt 74.8 kg
[~2023-08-20 08:36] MED LIST changes: +METO-485 PO
[2023-08-20 08:43] VITALS: BP 102/79; PULSE 106; RESP 20; TEMP 97.8; O2SAT 100
[2023-08-20] MEDS: NACL 0.9% 1,000 ML IV SCH (09:44)
[2023-08-20] MEDS: KETOROLAC 30 MG/ML VIAL IVP ONE (09:45)
[2023-08-20 09:47] LABS: BASOPHILS % (AUTO) 0.2 % (0.0-2.0); EOSINOPHILS % (AUTO) 0.1 % (0.0-4.0); HEMATOCRIT 37.5 % (36-48); HEMOGLOBIN 12.9 g/dL (12.0-16.0); LYMPHOCYTES % (AUTO) 16.6 % (20.5-51.1); MEAN CORPUSCULAR HEMOGLOBIN 31 pg (27-31); MEAN CORPUSCULAR HGB CONC 34 g/dL (33-37); MONOCYTES # (AUTO) 1.5 K/uL (0.8-1.0); MONOCYTES % (AUTO) 12.4 % (1.7-9.3); NEUTROPHILS # (AUTO) 8.4 K/uL (1.8-7.7); NEUTROPHILS % (AUTO) 70.7 % (42.2-75.2); PLATELET COUNT (AUTO) 340 K/uL (140-450); RED BLOOD CELL COUNT(AUTO) 4.21 MIL/uL (4.20-5.40); RED CELL DISTRIBUTION WIDTH 16.5 % (11.6-13.7); WHITE BLOOD COUNT (AUTO) 11.8 K/uL (4.8-10.8)
[2023-08-20] MEDS: METOCLOPRAMIDE 10 MG/2 ML INJ VIAL IVP ONE (09:49)
[2023-08-20 10:05] LABS: ANION GAP 19.3 (8-16); CALCIUM 9.8 mg/dL (8.5-10.1); CARBON DIOXIDE 23.5 mmol/L (21-32); CREATININE 2.3 mg/dL (0.6-1.3)
[2023-08-20 10:09] LABS: ALBUMIN 4.4 g/dL (3.4-5.0); TOTAL BILIRUBIN 0.7 mg/dL (0.0-1.0); TOTAL PROTEIN, SERUM 9.8 g/dL (6.4-8.2)
[2023-08-20 10:10] LABS: APPEARANCE,URINE CLEAR (CLEAR); BILIRUBIN,URINE NEGATIVE (NEGATIVE); BLOOD, URINE NEGATIVE (NEGATIVE); COLOR,URINE YELLOW (YELLOW); LEUKOCYTE ESTERASE ,URINE NEGATIVE (NEGATIVE); NITRITE, URINE NEGATIVE (NEGATIVE); PROTEIN,URINE 3+ (NEGATIVE); UGLUCOSE NEGATIVE (NEGATIVE); UROBILINOGEN,URINE 0.2 EU/dL (0.2 - 1)
[2023-08-20 10:12] LABS: POTASSIUM 2.8 mmol/L (3.5-5.1)
[2023-08-20] MEDS: diphenhydrAMINE 50 MG/ML VIAL IVP ONE (10:24)
[2023-08-20] MEDS: POTASSIUM CHLORIDE 10 MEQ TABER PO ONE (11:25)
[2023-08-20] MEDS: NACL 0.9% 1,000 ML IV ONE (11:27)
[2023-08-20] MEDS ORDERED: OMEP20EC11 PO (13:53)
[2023-08-20 14:02] VITALS: BP 138/75; PULSE 91; RESP 14; TEMP 98; O2SAT 99
== END 2023-08-20 14:02 | disposition home or self-care (01) ==
LOC: MED 08:36
DX: R11.2 Nausea with vomiting, unspecified (principal); N28.9 Disorder of kidney and ureter, unspecified; Z79.1 Long term (current) use of non-steroidal anti-inflammatories (NSAID); Z79.899 Other long term (current) drug therapy; Z79.2 Long term (current) use of antibiotics
CPT/HCPCS: 36415; 80048; 80076; 81003; 81025; 83690; 85025; 96361; 96374; 96375; 99285; J1200; J1885; J2765; J7030

== ENCOUNTER 2023-09-23 17:02 | Emergency (ER) | payer OTHER ==
[~2023-09-23] VITALS: Ht 170.2 cm; Wt 67.3 kg
[~2023-09-23 17:02] MED LIST changes: +OMEP20EC11 PO
[2023-09-23 17:11] VITALS: BP 120/81; PULSE 115; RESP 20; TEMP 97.7; O2SAT 100
[2023-09-23] MEDS: ONDANSETRON 4 MG ODT PO ONE (17:34)
[2023-09-23 18:10] LABS: APPEARANCE,URINE SL CLOUDY (CLEAR); BILIRUBIN,URINE 2+ (NEGATIVE); BLOOD, URINE TRACE-I (NEGATIVE); COLOR,URINE YELLOW (YELLOW); LEUKOCYTE ESTERASE ,URINE NEGATIVE (NEGATIVE); NITRITE, URINE NEGATIVE (NEGATIVE); PROTEIN,URINE 3+ (NEGATIVE); UGLUCOSE NEGATIVE (NEGATIVE)
[2023-09-23 18:10] LABS: BASOPHILS % (AUTO) 0.2 % (0.0-2.0); HEMATOCRIT 37.4 % (36-48); HEMOGLOBIN 12.3 g/dL (12.0-16.0); LYMPHOCYTES % (AUTO) 13.4 % (20.5-51.1); MEAN CORPUSCULAR HEMOGLOBIN 29 pg (27-31); MEAN CORPUSCULAR HGB CONC 33 g/dL (33-37); MEAN CORPUSCULAR VOLUME 89.3 fL (80-94); MONOCYTES # (AUTO) 0.5 K/uL (0.8-1.0); MONOCYTES % (AUTO) 6.4 % (1.7-9.3); PLATELET COUNT (AUTO) 385 K/uL (140-450); RED BLOOD CELL COUNT(AUTO) 4.19 MIL/uL (4.20-5.40); RED CELL DISTRIBUTION WIDTH 15.8 % (11.6-13.7); WHITE BLOOD COUNT (AUTO) 7.5 K/uL (4.8-10.8)
[2023-09-23 18:20] LABS: ICTOTEST POSITIVE (NEGATIVE)
[2023-09-23 18:21] LABS: BACTERIA,URINE 1+ /HPF (None Seen); MUCUS,URINE None Seen /LPF (None Seen); RBC,URINE 0-5 /HPF (0-5); SQUAMOUS EPITHELIAL CELL,UR 0-3 (FEW) /LPF (0-3 (FEW)); WBC,URINE 0-5 /HPF (0-5)
[2023-09-23 18:26] LABS: ANION GAP 23.5 (8-16); CALCIUM 10.9 mg/dL (8.5-10.1); CARBON DIOXIDE 22.5 mmol/L (21-32); CREATININE 1.7 mg/dL (0.6-1.3)
[2023-09-23 18:29] LABS: ALBUMIN 4.6 g/dL (3.4-5.0); BILIRUBIN,DIRECT 0.2 mg/dL (0.0-0.3); TOTAL BILIRUBIN 0.6 mg/dL (0.0-1.0); TOTAL PROTEIN, SERUM 9.4 g/dL (6.4-8.2)
[2023-09-23] MEDS: diphenhydrAMINE 50 MG/ML VIAL IVP ONE (18:34)
[2023-09-23] MEDS: NACL 0.9% 1,000 ML IV ONE (18:34)
[2023-09-23] MEDS: HALOPERIDOL IM 5 MG/ML VIAL IVP ONE (18:35)
[2023-09-23] MEDS ORDERED: POTASSIUM CHLORIDE 10 MEQ TABER PO ONE (19:25)
[2023-09-23 19:35] VITALS: BP 104/64; PULSE 77; RESP 13; TEMP 97.7; O2SAT 97
== END 2023-09-23 19:35 | disposition home or self-care (01) ==
LOC: MED 17:02
DX: R11.2 Nausea with vomiting, unspecified (principal); Z79.1 Long term (current) use of non-steroidal anti-inflammatories (NSAID); Z79.2 Long term (current) use of antibiotics; Z79.899 Other long term (current) drug therapy
CPT/HCPCS: 36415; 80048; 80076; 81001; 81025; 83690; 85025; 96361; 96374; 96375; 99284; J1200; J1630; J7030; Q0162